=== PATIENT | female | born 1985 ===

== ENCOUNTER 2022-02-01 02:26 | Inpatient (IN) | payer OTHER ==
[~2022-02-01] VITALS: Ht 154.9 cm; Wt 82.7 kg
[2022-02-01] VITALS (16 sets, daily range): BP systolic 113–183; BP diastolic 55–104
[2022-02-01] MEDS ORDERED: AMPICILLIN FOR IV USE 2,000 MG in NS (IVPB) 50 ML IV SCH (02:40)
[2022-02-01] MEDS ORDERED: AMPICILLIN 2,000 MG/14.8 ML (IV USE) ONE (02:43)
[2022-02-01] MEDS ORDERED: NS (IVPB) 50 ML ONE (02:43)
[2022-02-01] MEDS ORDERED: D5 LR IV SOLUTION 1,000 ML IV ONE (02:44)
[2022-02-01] MEDS ORDERED: D5 LR IV SOLUTION 1,000 ML IV SCH (02:45)
[2022-02-01] MEDS ORDERED: OXYTOCIN PRE-MIX DRIP 500 ML IV ONE (02:48)
[2022-02-01 03:04] LABS: BASOPHILS % (AUTO) 0 % (0-10); EOSINOPHILS # (AUTO) 0.1 10^3/uL (0.0-0.3); EOSINOPHILS % (AUTO) 1 % (0-10); HEMATOCRIT 34 % (35-52); HEMOGLOBIN 10.9 g/dL (11.5-16.0); LYMPHOCYTES # (AUTO) 3.7 10^3/uL (1.0-4.0); LYMPHOCYTES % (AUTO) 38 % (12-44); MEAN CORPUSCULAR HEMOGLOBIN 25 pg (25-34); MEAN CORPUSCULAR HGB CONC 32 g/dL (32-36); MEAN CORPUSCULAR VOLUME 79 fL (80-99); MONOCYTES # (AUTO) 0.7 10^3/uL (0.0-1.0); MONOCYTES % (AUTO) 7 % (0-12); NEUTROPHILS # (AUTO) 5.2 10^3/uL (1.8-7.8); NEUTROPHILS % (AUTO) 53 % (42-75); PLATELET COUNT 216 10^3/uL (130-400); WHITE BLOOD COUNT 9.7 10^3/uL (4.3-11.0)
--- NOTE | 2022-02-01 03:37 | History & Physical-OB ---
OB - Chief Complaint & HPI Date/Time Date of Admission: Date of Admission: Feb 01, 2022 at 02:36 Date seen by a Provider: Feb 01, 2022 Time Seen by a Provider: 03:00 Chief Complaint/History OB-Reason for Admission/Chief: Rupture of Membranes Hx : 3 Hx Para: 3 Expected Date of Delivery: Mar 02, 2022 Gestational Age in Weeks: 35 Gestational Age in Days: 6 Admission Nurse Assessment Rev: Yes History of Labs GBS not performed yet. Was to be performed today in clinic Allergies and Home Medications Allergies Coded Allergies: No Known Drug Allergies (Unverified , 02/01/22) Patient Home Medication List Home Medication List Reviewed: Yes OB - History Hx of Present Care: Yes Ultrasounds: Abnormal US findings ( with small bladder.) Obstetrical Complications: None Medical Complications: None Patient Past Medical History no chronic medical problems OB - Admission Exam Physical Exam HEENT: Moist Membranes Heart: Rhythm Normal Lungs: Clear Abdomen: Gravid Cervical Dilatation: 8cm (on presentation) Effacement: 100% Station: -2 Membranes: Ruptured Amniotic Fluid: Clear Heart Rate: 140's Accelerations: Accelerations Present Short Term Variability: Present Care Home Variability: Average (6-25) Contractions on Admission: < 5 Minutes Apart Intensity: Moderate Labs Laboratory Tests Test 02/01/22 02:45 Range/Units White Blood Count 9.7 4.3-11.0 10^3/uL Red Blood Count 4.31 3.80-5.11 10^6/uL Hemoglobin 10.9 L 11.5-16.0 g/dL Hematocrit 34 L 35-52 % Mean Corpuscular Volume 79 L 80-99 fL Mean Corpuscular Hemoglobin 25 25-34 pg Mean Corpuscular Hemoglobin Concent 32 32-36 g/dL Red Cell Distribution Width 14.2 10.0-14.5 % Platelet Count 216 130-400 10^3/uL Mean Platelet Volume 13.0 H 9.0-12.2 fL Immature Granulocyte % (Auto) 1 % Neutrophils (%) (Auto) 53 42-75 % Lymphocytes (%) (Auto) 38 12-44 % Monocytes (%) (Auto) 7 0-12 % Eosinophils (%) (Auto) 1 0-10 % Basophils (%) (Auto) 0 0-10 % Neutrophils # (Auto) 5.2 1.8-7.8 10^3/uL Lymphocytes # (Auto) 3.7 1.0-4.0 10^3/uL Monocytes # (Auto) 0.7 0.0-1.0 10^3/uL Eosinophils # (Auto) 0.1 0.0-0.3 10^3/uL Basophils # (Auto) 0.0 0.0-0.1 10^3/uL Immature Granulocyte # (Auto) 0.1 0.0-0.1 10^3/uL OB - Assessment/Plan/Diagnosis Assessment Assessment: active labor (at 35w6d gestation with SROM) Admission Dx 1. IUP at 35w6d with SROM Admission Status: Inpatient Order (span 2 midnights) Reason for Inpatient Admission: delivery Plan Plan: Other (delivery) Other Plan 1. Admit for delivery -will give ampicillin MARY Dow MD Feb 01, 2022 03:37
--- NOTE | 2022-02-01 03:40 | OB Labor & Delivery Record ---
L&D History Date of Service Date of Service: Feb 01, 2022 History Expected Date of Delivery: Mar 02, 2022 Gestational Age in Weeks: 35 Hx : 3 Hx Para: 3 Complications Events: Routine care (except for BPP at term due to US with small infant bladder) Operative Indications (Cesarea: N/A-Vaginal Delivery Intrapartal Events: None Other Complications amp protochol for GBS since unknown L&D Stage1 Stage One Onset of Labor - Date: Feb 01, 2022 Onset of Labor - Time: 00:30 Monitors and Tracing Monitor Mode: External Heart Rate: 140 Monitor Accelerations: Uniform Monitor Decelerations: Variable Station: -2 Inseamer Variability: Average (6-10) Short Term Variability: Present Presentation: Vertex Signs of Distress by FHT Signs of Distress no Rupture of Membranes Spontaneous Ruture of Membrane: Yes Amniotic Membrane Rupture Time: 00:30 Amniotic Membrane Fluid Desc.: Clear L&D Stage2 Stage Two Stage II Date: Feb 01, 2022 Stage II Time: 03:13 Monitors and Tracing Monitor Mode: External Monitor Accelerations: None Monitor Decelerations: Variable [facility] Variability: Average (6-10) Short Term Variability: Present Position: Left Occiput Anterior Presentation: Vertex Signs of Distress by FHT Signs of Distress no Cord Descript/Complications Cord Vessel Description: 3 Vessels Delivery Type Delivery Method: Spontaneous Vaginal Anterior Shoulder: Left Episiotomy/Perineal Laceration Laceraction(s)/Extensions: No Condition of Infant Delivery 1 minute Comment: 8 5 minute Comment: 9 Condition of Condition of Infant: Living Exam: No Observed Abnormalities Resuscitation Resuscitation: N/A - Spontaneous Resp L&D Stage3 Stage Three Stage III Date: Feb 01, 2022 Stage III Time: 03:18 Pictocin Pitocin ml/hr: 999 Placenta Delivery Placenta Delivery: Spontaneous Delivery Summary Summary Estimated blood loss (mL): 300 Condition of Delivery Examined: Cervix Examined Post Hemorrhage: No Intervention Required none MARY WINTER MD Feb 01, 2022 03:40
[2022-02-01] MEDS ORDERED: WITCH HAZEL(TUCKS) 40 EA JAR TOP PRN (03:45)
[2022-02-01] MEDS ORDERED: MEASLES,MUMPS,RUBELLA 1 EA INJ SQ ONE (03:45)
[2022-02-01] MEDS ORDERED: BENZOCAINE/MENTHOL (DERMOPLAST) 56 ML CAN TP PRN (03:45)
[2022-02-01] MEDS ORDERED: NALOXONE 0.4 MG/ML 1 ML (NARCAN) VIAL IV PRN (03:45)
[2022-02-01] MEDS ORDERED: OXYTOCIN PRE-MIX DRIP 500 ML IV SCH (03:45)
[2022-02-01] MEDS ORDERED: TETANUS,DIPTH,PERTUSS P/F (BOOSTRIX) 0.5 ML VIAL IM ONE (03:45)
[2022-02-01] MEDS: IBUPROFEN 600 MG (MOTRIN) TAB PO SCH ×3 (05:12→18:41)
[2022-02-01] MEDS: ACETAMINOPHEN 500 MG TAB (TYLENOL) PO SCH ×3 (05:12→18:42)
[2022-02-01] MEDS ORDERED: CATHETER FLUSH 10 ML SYR IV SCH ×2 (06:00)
[2022-02-01] MEDS: DOCUSATE SODIUM 100 MG (COLACE) CAP PO SCH ×2 (10:52→22:44)
[2022-02-02 02:06] VITALS: BP 122/71
[2022-02-02] MEDS: ACETAMINOPHEN 500 MG TAB (TYLENOL) PO SCH ×2 (02:06→10:40)
[2022-02-02] MEDS: IBUPROFEN 600 MG (MOTRIN) TAB PO SCH ×2 (02:06→10:40)
[2022-02-02 06:05] LABS: BASOPHILS # (AUTO) 0.1 10^3/uL (0.0-0.1); BASOPHILS % (AUTO) 1 % (0-10); EOSINOPHILS # (AUTO) 0.2 10^3/uL (0.0-0.3); EOSINOPHILS % (AUTO) 1 % (0-10); HEMATOCRIT 29 % (35-52); HEMOGLOBIN 9.3 g/dL (11.5-16.0); LYMPHOCYTES # (AUTO) 2.6 10^3/uL (1.0-4.0); LYMPHOCYTES % (AUTO) 25 % (12-44); MEAN CORPUSCULAR HEMOGLOBIN 25 pg (25-34); MEAN CORPUSCULAR HGB CONC 32 g/dL (32-36); MEAN CORPUSCULAR VOLUME 80 fL (80-99); MEAN PLATELET VOLUME 12.5 fL (9.0-12.2); MONOCYTES # (AUTO) 0.7 10^3/uL (0.0-1.0); MONOCYTES % (AUTO) 6 % (0-12); NEUTROPHILS % (AUTO) 66 % (42-75); PLATELET COUNT 186 10^3/uL (130-400); WHITE BLOOD COUNT 10.6 10^3/uL (4.3-11.0)
--- NOTE | 2022-02-02 07:41 | Discharge Summary ---
Diagnosis/Chief Complaint Date of Admission Feb 01, 2022 at 02:36 Date of Discharge February 02, 2022 Admission Diagnosis Admission Diagnosis 1. IUP at 35w4d Discharge Diagnosis 1. IUP at 35w4d Chief Complaint/HPI Chief Complaint/HPI 36 yo [id number] who initially presented to L&D with labor and SROM at 35w4d gestation. Discharge Summary-OBS Procedures 1. Discharge Physical Examination Allergies: Coded Allergies: No Known Drug Allergies (Unverified , 02/01/22) Vitals & I&Os Vital Sign - Last 12Hours Date Time Temp Pulse Resp B/P (MAP) Pulse Ox O2 Delivery O2 Flow Rate FiO2 02/02/22 02:06 36.0 78 18 122/71 (88) 97 Room Air General Appearance: Alert, No Acute Distress Hospital Course Her Hg on 02/01 was 10.9 compared to DC of 9.3. Labs Laboratory Tests 02/02/22 05:28: White Blood Count 10.6, Red Blood Count 3.67L, Hemoglobin 9.3L, Hematocrit 29L, Mean Corpuscular Volume 80, Mean Corpuscular Hemoglobin 25, Mean Corpuscular Hemoglobin Concent 32, Red Cell Distribution Width 14.5, Platelet Count 186, Mean Platelet Volume 12.5H, Immature Granulocyte % (Auto) 1, Neutrophils (%) (Auto) 66, Lymphocytes (%) (Auto) 25, Monocytes (%) (Auto) 6, Eosinophils (%) (Auto) 1, Basophils (%) (Auto) 1, Neutrophils # (Auto) 7.0, Lymphocytes # (Auto) 2.6, Monocytes # (Auto) 0.7, Eosinophils # (Auto) 0.2, Basophils # (Auto) 0.1, Immature Granulocyte # (Auto) 0.1, Percent Immature Platelet Fraction 12.4H Discharge Instructions to patient/family Please see electronic discharge instructions given to patient. Discharge Medications Reviewed and agree with Discharge Medication list on patient's Discharge Instruction sheet MARY WINTER MD Feb 02, 2022 07:40
--- NOTE | 2022-02-02 07:43 | Discharge Inst-Women's Service ---
Discharge Inst-Women's Serv Depart Medication/Instructions Instructions May take over the counter ibuprofen 200mg 2 or 3 tabs every 6 hours if needed for cramping Consults/Follow Up Additional Follow Up: Yes (Dr Winter at [facility] in 6 weeks.) Activity Driving Instructions: No Driving for 1 Week Nothing Inside Vagina: No [place] (for 6 weeks.) Diet Discharge Diet: Regular Diet Return to The Hospital For: as below Symptoms to Report to : Bleeding Excessive, Fever Over 101 Degrees F, Vaginal Discharge Foul For Any Problems or Questions: Contact Your Physician MARY WINTER MD Feb 02, 2022 07:43
[2022-02-02 10:39] VITALS: BP 128/79
[2022-02-02] MEDS: DOCUSATE SODIUM 100 MG (COLACE) CAP PO SCH (10:40)
== END 2022-02-02 10:50 | disposition home or self-care (01) | DRG 807 ==
LOC: WSo 02:26 → LDRP 02:28 → WSo 02:36 → LDRP 02:36
PROVIDERS: ADMIT Family Medicine; ATTEND Family Medicine
PROC: 10E0XZZ Delivery of Products of Conception, External Approach (ICD-10-PCS; principal; 2022-02-01)
DX: O60.14X0 Preterm labor third trimester with preterm delivery third trimester, not applicable or unspecified (principal); Z37.0 Single live birth; Z3A.35 35 weeks gestation of pregnancy
CPT/HCPCS: 36415; 85025; 86780; 86850; 86900; 86901; 99212